=== PATIENT | male | born 1960 | race Caucasian/White ===

== ENCOUNTER → 2023-11-09 08:32 | Outpatient (REF) | payer OTHER, SELFPAY | LOC: RCS 08:32 | PROVIDERS: ATTENDING PHYSICIAN Internal Medicine Cardiovascular Disease; FAMILY PHYSICIAN Family Medicine | DX: R06.09 Other forms of dyspnea (principal); E11.9 Type 2 diabetes mellitus without complications | CPT/HCPCS: 93017; 93306 ==

== ENCOUNTER → 2023-12-14 15:22 | Outpatient (REF) | payer OTHER, SELFPAY | LOC: RAD 15:22 | PROVIDERS: ATTENDING PHYSICIAN Surgery Vascular Surgery; FAMILY PHYSICIAN Family Medicine | DX: I87.1 Compression of vein (principal) | CPT/HCPCS: 93971 ==

== ENCOUNTER → 2024-12-22 08:04 | Outpatient (REF) | payer OTHER, SELFPAY | LOC: DHVS 08:04 | PROVIDERS: ATTENDING PHYSICIAN Surgery Vascular Surgery; FAMILY PHYSICIAN Family Medicine | DX: I87.1 Compression of vein (principal) | CPT/HCPCS: 93971 ==